=== PATIENT | female | born 1940 | race Caucasian/White ===

== ENCOUNTER 2018-06-08 11:49 | Inpatient (IN) | payer OTHER ==
[~2018-06-08 11:49] MED LIST: DESFLURANE 15 MIN
[2018-06-08] MEDS: TRANEXAMIC ACID 1,000 MG in DEXTROSE 5% 100 ML IV (14:00)
[2018-06-08] MEDS ORDERED: DIPHENHYDRAMINE 50 MG INJ IV (16:00)
[2018-06-08] MEDS ORDERED: HYDROmorphONE 1 MG/5 ML IV SYRINGE IV (16:00)
[2018-06-08] MEDS ORDERED: METOCLOPRAMIDE 10 MG INJ IV (16:00)
[2018-06-08] MEDS ORDERED: ALBUTEROL 0.083% (NEB) 2.5 MG/3 ML AMP HHN (16:00)
[2018-06-08] MEDS ORDERED: FENTAnyl 50 MCG/ML VIAL IV (16:00)
[2018-06-08] MEDS ORDERED: FENTAnyl 50 MCG/ML VIAL ×2 (16:08→17:34)
[2018-06-08] MEDS ORDERED: MIDAZOLAM 1 MG/ML 2 ML INJ (16:08)
[2018-06-08] MEDS ORDERED: PROPOFOL 20 ML (17:37)
[2018-06-08] MEDS ORDERED: SUGAMMADEX SODIUM 200 MG/2 ML VIAL IV (17:37)
[2018-06-08] MEDS ORDERED: ROCURONIUM 50 MG INJ (17:37)
[2018-06-08] MEDS ORDERED: CEFAZOLIN 1 GM INJ (17:37)
[2018-06-08] MEDS ORDERED: SUCCINYLCHOLINE CHLORIDE 100 MG/5 ML SYG IV (17:37)
[2018-06-08] MEDS ORDERED: LIDOCAINE 100 MG SYRINGE (17:37)
[2018-06-08] MEDS: HYDROmorphONE 1 MG/5 ML IV SYRINGE IV ×2 (18:25→18:35)
[2018-06-08] MEDS ORDERED: HYDROCODONE/APAP (5/325) TAB PO (18:30)
[2018-06-08] MEDS: ONDANSETRON 4 MG INJ IV (18:37)
[2018-06-08] MEDS: MEPERIDINE 25 MG INJ IV (18:37)
[2018-06-08 18:41] LABS: ADD UMIC NO; UR ASCORBIC ACID NEGATIVE (NEGATIVE); UR BILIRUBIN (Dip) NEGATIVE (NEGATIVE); UR BLOOD (Dip) NEGATIVE (NEGATIVE); UR CLARITY SLIGHTLY CLOUDY (CLEAR); UR COLOR YELLOW (YELLOW); UR GLUCOSE (Dip) NEGATIVE (NEGATIVE); UR KETONES (Dip) NEGATIVE (NEGATIVE); UR LEUKOCYTE ESTERASE (Dip) NEGATIVE Leu/ul (NEGATIVE); UR MUCUS FEW /HPF (NONE SEEN); UR NITRITE (Dip) NEGATIVE (NEGATIVE); UR RBC 2 /HPF (0-5); UR SQUAMOUS EPITHELIAL CELL FEW /HPF (FEW); UR TOTAL PROTEIN (Dip) NEGATIVE (NEGATIVE); UR UROBILINOGEN (Dip) NEGATIVE (NEGATIVE); UR WBC 1 /HPF (0-5)
[2018-06-08] MEDS: FENTAnyl 50 MCG/ML VIAL IV ×2 (18:48→19:04)
[2018-06-08 19:00] LABS: HEMATOCRIT 36.8 % (37.0-47.0); HEMOGLOBIN 12.1 g/dl (12.0-16.0)
[2018-06-08 19:17] LABS: ANION GAP 9 (8-16); BLOOD UREA NITROGEN 22 mg/dl (7-20); CALCIUM 8.9 mg/dl (8.4-10.2); CARBON DIOXIDE 27 mmol/L (21-31); CHLORIDE 108 mmol/L (97-110); CREATININE 1.14 mg/dl (0.44-1.00); GLUCOSE 107 mg/dl (70-220); POTASSIUM 3.8 mmol/L (3.5-5.1); SODIUM 140 mmol/L (135-144)
[2018-06-08] MEDS: morphine 2 MG INJ IV ×2 (20:11→22:39)
[2018-06-08] MEDS ORDERED: VITAMIN A & D 5 GM OINT PACKET TOP (20:44)
[2018-06-08] MEDS: HYDROCODONE/APAP (5/325) TAB PO (21:07)
[2018-06-08] MEDS ORDERED: CEFAZOLIN 1 GM/50 ML (PMX) 50 ML IVPB (22:00)
[2018-06-09] MEDS: HYDROCODONE/APAP (5/325) TAB PO ×3 (01:03→15:49)
[2018-06-09] MEDS: morphine 2 MG INJ IV ×5 (03:03→23:26)
[2018-06-09 05:27] LABS: ADD MAN DIFF? NO
[2018-06-09 05:38] LABS: BASOPHILS % 0.4 % (0.0-2.0); HEMATOCRIT 35.5 % (37.0-47.0); HEMOGLOBIN 11.6 g/dl (12.0-16.0); LYMPHOCYTES % 13.9 % (15.0-51.0); MEAN CORPUSCULAR HEMOGLOBIN 29.3 pg (29.0-33.0); MEAN CORPUSCULAR HGB CONC 32.7 g/dl (32.0-37.0); MEAN CORPUSCULAR VOLUME 89.6 fl (82.0-101.0); MEAN PLATELET VOLUME 11.6 fl (7.4-10.4); MONOCYTE # 0.6 10^3/ul (0.3-0.9); MONOCYTES % 7.5 % (0.0-11.0); NEUTROPHIL # 5.8 10^3/ul (1.6-7.5); NEUTROPHILS % 77.7 % (39.0-77.0); PLATELET COUNT 145 10^3/UL (140-415); RED BLOOD COUNT 3.96 10^6/ul (4.20-5.40); RED CELL DISTRIBUTION WIDTH 13.2 % (11.5-14.5)
[2018-06-09 05:38] LABS: WHITE BLOOD COUNT 7.5 10^3/ul (4.8-10.8)
[2018-06-09] MEDS: CEFAZOLIN 1 GM/50 ML (PMX) 50 ML IVPB ×4 (05:54→21:23)
[2018-06-09 06:10] LABS: POSITIVE DIFF @See below
[2018-06-09 06:32] LABS: ANION GAP 10 (8-16); BLOOD UREA NITROGEN 22 mg/dl (7-20); CALCIUM 8.5 mg/dl (8.4-10.2); CARBON DIOXIDE 26 mmol/L (21-31); CHLORIDE 108 mmol/L (97-110); CREATININE 1.02 mg/dl (0.44-1.00); GLUCOSE 116 mg/dl (70-220); POTASSIUM 4.1 mmol/L (3.5-5.1); SODIUM 140 mmol/L (135-144)
[2018-06-09] MEDS: GABAPENTIN 300 MG CAP PO (08:50)
[2018-06-09] MEDS: KETOROLAC 30 MG INJ IV ×2 (08:51→17:37)
[2018-06-10] MEDS ORDERED: DIAZEPAM 5 MG/ML SYG IV (00:30)
[2018-06-10] MEDS: DIAZEPAM 5 MG/ML SYG IV ×2 (00:53→20:19)
[2018-06-10 05:28] LABS: ADD MAN DIFF? NO
[2018-06-10 05:40] LABS: ABNORMAL IP MESSAGE 1; BASOPHILS % 0.7 % (0.0-2.0); EOSINOPHILS # 0.1 10^3/ul (0.0-0.5); EOSINOPHILS % 0.8 % (0.0-7.0); HEMOGLOBIN 11.3 g/dl (12.0-16.0); LYMPHOCYTES # 0.5 10^3/ul (0.8-2.9); LYMPHOCYTES % 8.5 % (15.0-51.0); MEAN CORPUSCULAR HEMOGLOBIN 29.7 pg (29.0-33.0); MEAN CORPUSCULAR HGB CONC 33.2 g/dl (32.0-37.0); MEAN CORPUSCULAR VOLUME 89.2 fl (82.0-101.0); MEAN PLATELET VOLUME 10.3 fl (7.4-10.4); MONOCYTE # 0.5 10^3/ul (0.3-0.9); MONOCYTES % 8.8 % (0.0-11.0); NEUTROPHIL # 4.7 10^3/ul (1.6-7.5); NEUTROPHILS % 80.4 % (39.0-77.0); PLATELET COUNT 140 10^3/UL (140-415); RED BLOOD COUNT 3.81 10^6/ul (4.20-5.40); RED CELL DISTRIBUTION WIDTH 13.2 % (11.5-14.5)
[2018-06-10 05:40] LABS: WHITE BLOOD COUNT 5.9 10^3/ul (4.8-10.8)
[2018-06-10 05:58] LABS: ANION GAP 8 (5-13); BLOOD UREA NITROGEN 23 mg/dl (7-20); CALCIUM 8.5 mg/dl (8.4-10.2); CARBON DIOXIDE 29 mmol/L (21-31); CHLORIDE 103 mmol/L (97-110); CREATININE 1.14 mg/dl (0.44-1.00); GLUCOSE 147 mg/dl (70-220); SODIUM 136 mmol/L (135-144)
[2018-06-10 06:01] LABS: POSITIVE DIFF @See below
[2018-06-10] MEDS: ASPIRIN 81 MG TAB PO (08:44)
[2018-06-10] MEDS: HYDROCODONE/APAP (5/325) TAB PO ×3 (08:44→18:49)
[2018-06-10] MEDS: LOSARTAN 50 MG TAB PO (08:45)
[2018-06-10] MEDS: HYDROCHLOROTHIAZIDE 25 MG TAB PO (08:45)
[2018-06-10] MEDS: GABAPENTIN 300 MG CAP PO (08:52)
[2018-06-10] MEDS: morphine 2 MG INJ IV (10:04)
[2018-06-10] MEDS: METOPROLOL 25 MG TAB PO (20:23)
[2018-06-11] MEDS: HYDROCODONE/APAP (5/325) TAB PO ×3 (01:36→10:29)
[2018-06-11 05:11] LABS: ADD MAN DIFF? NO
[2018-06-11 05:27] LABS: WHITE BLOOD COUNT 5.6 10^3/ul (4.8-10.8)
[2018-06-11 05:27] LABS: BASOPHILS % 0.5 % (0.0-2.0); EOSINOPHILS # 0.2 10^3/ul (0.0-0.5); EOSINOPHILS % 3.1 % (0.0-7.0); HEMATOCRIT 32.6 % (37.0-47.0); HEMOGLOBIN 10.8 g/dl (12.0-16.0); LYMPHOCYTES % 17.2 % (15.0-51.0); MEAN CORPUSCULAR HEMOGLOBIN 29.6 pg (29.0-33.0); MEAN CORPUSCULAR HGB CONC 33.1 g/dl (32.0-37.0); MEAN CORPUSCULAR VOLUME 89.3 fl (82.0-101.0); MEAN PLATELET VOLUME 10.1 fl (7.4-10.4); MONOCYTE # 0.7 10^3/ul (0.3-0.9); MONOCYTES % 11.8 % (0.0-11.0); NEUTROPHIL # 3.7 10^3/ul (1.6-7.5); NEUTROPHILS % 66.9 % (39.0-77.0); PLATELET COUNT 139 10^3/UL (140-415); RED BLOOD COUNT 3.65 10^6/ul (4.20-5.40); RED CELL DISTRIBUTION WIDTH 13.2 % (11.5-14.5)
[2018-06-11 05:58] LABS: ANION GAP 6 (5-13); BLOOD UREA NITROGEN 18 mg/dl (7-20); CALCIUM 8.5 mg/dl (8.4-10.2); CARBON DIOXIDE 28 mmol/L (21-31); CHLORIDE 106 mmol/L (97-110); CREATININE 1.05 mg/dl (0.44-1.00); GLUCOSE 101 mg/dl (70-220); SODIUM 140 mmol/L (135-144)
[2018-06-11] MEDS: morphine 2 MG INJ IV ×5 (09:02→21:22)
[2018-06-11] MEDS: ASPIRIN 81 MG TAB PO (10:30)
[2018-06-11] MEDS: HYDROCHLOROTHIAZIDE 25 MG TAB PO (10:30)
[2018-06-11] MEDS: METOPROLOL 25 MG TAB PO ×2 (10:31→20:31)
[2018-06-11] MEDS: LOSARTAN 50 MG TAB PO (10:31)
[2018-06-11] MEDS: ENOXAPARIN 40 MG/0.4 ML SYG SC (10:34)
[2018-06-11] MEDS: DOCUSATE SODIUM 100 MG CAP PO ×2 (14:00→20:31)
[2018-06-11] MEDS: FAMOTIDINE 20 MG TAB PO (20:31)
[2018-06-12] MEDS: morphine 2 MG INJ IV ×3 (02:17→14:27)
[2018-06-12 05:30] LABS: ADD MAN DIFF? NO
[2018-06-12 05:34] LABS: BASOPHILS % 0.9 % (0.0-2.0); EOSINOPHILS # 0.2 10^3/ul (0.0-0.5); EOSINOPHILS % 5.6 % (0.0-7.0); HEMATOCRIT 31.4 % (37.0-47.0); HEMOGLOBIN 10.5 g/dl (12.0-16.0); LYMPHOCYTES # 0.9 10^3/ul (0.8-2.9); MEAN CORPUSCULAR HEMOGLOBIN 29.2 pg (29.0-33.0); MEAN CORPUSCULAR HGB CONC 33.4 g/dl (32.0-37.0); MEAN CORPUSCULAR VOLUME 87.5 fl (82.0-101.0); MEAN PLATELET VOLUME 10.3 fl (7.4-10.4); MONOCYTE # 0.5 10^3/ul (0.3-0.9); MONOCYTES % 10.5 % (0.0-11.0); NEUTROPHIL # 2.7 10^3/ul (1.6-7.5); NEUTROPHILS % 62.3 % (39.0-77.0); PLATELET COUNT 161 10^3/UL (140-415); RED BLOOD COUNT 3.59 10^6/ul (4.20-5.40); RED CELL DISTRIBUTION WIDTH 13.2 % (11.5-14.5)
[2018-06-12 05:34] LABS: WHITE BLOOD COUNT 4.3 10^3/ul (4.8-10.8)
[2018-06-12 06:16] LABS: ANION GAP 3 (5-13); BLOOD UREA NITROGEN 22 mg/dl (7-20); CALCIUM 8.4 mg/dl (8.4-10.2); CARBON DIOXIDE 32 mmol/L (21-31); CHLORIDE 104 mmol/L (97-110); CREATININE 1.13 mg/dl (0.44-1.00); GLUCOSE 105 mg/dl (70-220); SODIUM 139 mmol/L (135-144)
[2018-06-12] MEDS: DOCUSATE SODIUM 100 MG CAP PO (09:17)
[2018-06-12] MEDS: ASPIRIN 81 MG TAB PO (09:17)
[2018-06-12] MEDS: FAMOTIDINE 20 MG TAB PO (09:18)
[2018-06-12] MEDS: METOPROLOL 25 MG TAB PO (09:19)
[2018-06-12] MEDS: LOSARTAN 50 MG TAB PO (09:19)
[2018-06-12] MEDS: HYDROCHLOROTHIAZIDE 25 MG TAB PO (09:20)
[2018-06-12] MEDS: ENOXAPARIN 40 MG/0.4 ML SYG SC (09:21)
[2018-06-12] MEDS: HYDROCODONE/APAP (5/325) TAB PO ×2 (10:17→17:51)
== END 2018-06-12 20:04 | disposition home health service (06) | DRG 470 ==
LOC: REC 11:49 → MS1 21:08
PROC: 0SRD069 Replacement of Left Knee Joint with Oxidized Zirconium on Polyethylene Synthetic Substitute, Cemented, Open Approach (ICD-10-PCS; principal; 2018-06-08 15:00)
DX: M17.12 Unilateral primary osteoarthritis, left knee (principal); I25.10 Atherosclerotic heart disease of native coronary artery without angina pectoris; E66.01 Morbid (severe) obesity due to excess calories; E78.5 Hyperlipidemia, unspecified; I12.9 Hypertensive chronic kidney disease with stage 1 through stage 4 chronic kidney disease, or unspecified chronic kidney disease; N18.9 Chronic kidney disease, unspecified; Z95.5 Presence of coronary angioplasty implant and graft; Z68.38 Body mass index [BMI] 38.0-38.9, adult; Z87.891 Personal history of nicotine dependence
CPT/HCPCS: 80048; 81001; 81003; 85014; 85018; 85025; 88304; 88311; 97110; 97116; 97161; 97530